=== PATIENT | female | born 1985 | race Caucasian/White ===

== ENCOUNTER 2016-09-01 14:14 | Inpatient (IN) | payer OTHER ==
[~2016-09-01] VITALS: Ht 160 cm; Wt 48.0 kg
[2016-09-01 14:52] LABS: BASO % 0.2 % (0.1-1.2); EOS # 0.1 10_X3_uL (0.0-0.4); EOS % 1.3 % (0.7-5.8); GRAN # 8.2 10_X3_uL (1.6-6.1); HEMATOCRIT 41.1 % (34-45); HEMOGLOBIN 14.2 g/dL (11.2-15.7); LYMPH # 1.1 10_X3_uL (1.2-3.7); LYMPH % 10.9 % (19.3-51.7); MEAN CORPUSCULAR HEMOGLOBIN 31.8 pg (27.0-33.0); MEAN CORPUSCULAR HGB CONC 34.5 g/dL (32.0-36.0); MEAN CORPUSCULAR VOLUME 92.2 fL (79-95); MEAN PLATELET VOLUME 9.8 fl (7.5-11.5); MONO # 0.9 10_X3_uL (0.2-0.9); MONO % 8.6 % (4.7-12.5); PLATELET COUNT 218 x10_3/uL (182-369); RED BLOOD COUNT 4.46 x10_6/uL (3.9-5.2); RED CELL DISTRIBUTION WIDTH 12.7 % (11.7-14.4); WHITE BLOOD COUNT 10.4 x10_3/uL (4.0-10.0)
[2016-09-01 15:10] LABS: ALBUMIN 4.4 gm/dL (3.4-5.0); ALKALINE PHOSPHATASE 46 U/L (50-136); ALT/SGPT 21 U/L (3.5-33.9); AMYLASE 25 U/L (15.62-74.58); AST/SGOT 25 U/L (7.04-26.96); BILIRUBIN,TOTAL 0.26 mg/dL (0.0-1.0); BLOOD UREA NITROGEN 10 mg/dL (7-18); CARBON DIOXIDE 24 mmol/L (21-32); CREATININE 0.6 mg/dL (0.6-1.3); GLUCOSE,RANDOM 94 mg/dL (70-99); LIPASE 11 U/L (6.75-60.75); POTASSIUM 4.4 mmol/L (3.5-5.1); SODIUM 138 mmol/L (136-145); TOTAL PROTEIN 7.7 gm/dL (6.4-8.2)
[2016-09-01 18:49] LABS: URINE BILIRUBIN NEGATIVE (NEGATIVE); URINE BLOOD NEGATIVE (NEGATIVE); URINE GLUCOSE (UA) NORMAL (NORMAL); URINE KETONE NEGATIVE (NEGATIVE); URINE LEUKOCYTE ESTERASE 1+ (NEGATIVE); URINE NITRATE NEGATIVE (NEGATIVE); URINE PROTEIN NEGATIVE (NEGATIVE); UROBILINOGEN NORMAL mg/dL (<1.0)
[2016-09-01 19:01] LABS: URINE BACTERIA 1+ (NONE SEEN); URINE RBC RARE /[HPF] (0-2); URINE WBC 0-5 /[HPF] (0-5)
[2016-09-02 07:21] LABS: HEMATOCRIT 44.5 % (34-45); HEMOGLOBIN 15.8 g/dL (11.2-15.7); MEAN CORPUSCULAR HGB CONC 35.5 g/dL (32.0-36.0); MEAN CORPUSCULAR VOLUME 90.3 fL (79-95); MEAN PLATELET VOLUME 10.7 fl (7.5-11.5); RED BLOOD COUNT 4.93 x10_6/uL (3.9-5.2); RED CELL DISTRIBUTION WIDTH 12.9 % (11.7-14.4); WHITE BLOOD COUNT 4.8 x10_3/uL (4.0-10.0)
[2016-09-02 07:26] LABS: ALBUMIN 3.9 gm/dL (3.4-5.0); ALKALINE PHOSPHATASE 39 U/L (50-136); ALT/SGPT 24 U/L (3.5-33.9); AST/SGOT 26 U/L (7.04-26.96); BILIRUBIN,TOTAL 0.31 mg/dL (0.0-1.0); BLOOD UREA NITROGEN 9 mg/dL (7-18); CALCIUM 8.6 mg/dL (8.7-10.7); CARBON DIOXIDE 20 mmol/L (21-32); CREATININE 0.6 mg/dL (0.6-1.3); GLUCOSE,RANDOM 86 mg/dL (70-99); POTASSIUM 3.8 mmol/L (3.5-5.1); SODIUM 137 mmol/L (136-145); TOTAL PROTEIN 6.9 gm/dL (6.4-8.2)
== END 2016-09-02 15:15 | disposition left against medical advice (07) | DRG 392 ==
LOC: ER 14:14 → MS 19:49
PROVIDERS: General Practice; ADMIT Family Medicine
DX: K52.9 Noninfective gastroenteritis and colitis, unspecified (principal); R11.2 Nausea with vomiting, unspecified; R19.7 Diarrhea, unspecified; F17.210 Nicotine dependence, cigarettes, uncomplicated
CPT/HCPCS: 36415; 80053; 81001; 82150; 83690; 84703; 85025; 96365; 96375; 99070; 99284; 99285-25